=== PATIENT | male | born 1955 | race Caucasian/White ===

== ENCOUNTER 2018-03-24 07:08 | Day surgery (SDC) | END 2018-03-24 12:25 | disposition home or self-care (01) ==

== ENCOUNTER 2018-11-21 06:02 | Day surgery (SDC) | payer OTHER ==
[2018-11-21] VITALS (7 sets, daily range): BP systolic 119–147; BP diastolic 79–90; PULSE 58–72; RESP 14–24; Ht 185.4 cm; Wt 79.8 kg
[~2018-11-21] VITALS: Ht 185.4 cm; Wt 79.8 kg
[~2018-11-21 06:02] MED LIST: CYCLOPENTOLATE 1% 2 ML OPH OPER SCH; LACTATED RINGER'S 1,000 ML IV SCH; MOXIFLOXACIN 0.5% 3 ML OPH OPER SCH; NEPAFENAC 0.1% 3 ML OPH OPER SCH; PHENYLephrine 2.5% 15 ML OPH OPER SCH; SOD CHLORIDE 0.9% 1,000 ML IV SCH; TROPICAMIDE 1% 15 ML OPH OPER SCH
[2018-11-21] MEDS ORDERED: MELO7.5O PO (07:17)
[2018-11-21] MEDS ORDERED: SUMA100T4 PO (07:17)
[2018-11-21] MEDS ORDERED: RANI150T5 PO (07:17)
--- NOTE | 2018-11-21 07:38 | HPN ---
Date/Time of Note Date/Time of Note DATE: 11/21/18 TIME: 07:38 Interval H&P Admission Note Pt. seen H&P reviewed: No system changes CHRISTIANA ELIZABETH Nov 21, 2018 07:38
[2018-11-21] MEDS ORDERED: EPINEPHrine 1 MG INJ ONE (07:45)
[2018-11-21] MEDS ORDERED: TIMOLOL MALEATE/PF 0.5% OCCUDOSE (0.3 ML) ONE (07:45)
[2018-11-21] MEDS ORDERED: TETRACAINE 0.5% 4 ML OPH ONE (07:45)
[2018-11-21] MEDS ORDERED: LIDOCAINE 1% (MPF) 10 ML INJ ONE (07:45)
[2018-11-21] MEDS ORDERED: NA HYALURONATE/CHONDROITIN 0.5 ML SYG ONE (07:46)
--- NOTE | 2018-11-21 07:52 | PREAC ---
Date/Time of Note Date/Time of Note DATE: 11/21/18 TIME: 07:50 Anesthesia Eval and Record Evaluation Time Pre-Procedure Interview DATE: 11/21/18 TIME: 07:50 Age 63 Sex male NPO: 8 hrs Preoperative diagnosis Rt eye cataract Planned procedure Rt eye CE IOL implant Past Medical History Past Medical History: None Surgery & Anesthesia Issues No known issue Meds Anticoagulation: No Beta Katia within 24 hr: No Reason Beta Katia not given: Pt. not on B-Katia Reported Medications Ranitidine Hcl* (Ranitidine Hcl*) 150 Mg Tablet, 150 MG PO Q12, #60 TAB 11/21/18 Meloxicam* (Meloxicam*) 7.5 Mg/5 Ml Oral.susp, 15 MG PO DAILY, #300 ML 11/21/18 Sumatriptan Succinate* (Sumatriptan Succinate*) 100 Mg Tablet, 100 MG PO BID PRN for MIGRAINE HEADACHE, TAB May repeat after 2 hours if needed; MAX 200 mg/24 hours 11/21/18 Current Medications Cyclopentolate HCl (Ak-Pentolate 1% Oph) 1 drop Q 5 MIN X 3 OPER Last administered on 11/21/18at 07:07; Admin Dose 1 DROP; Start 11/21/18 at 06:00 Phenylephrine HCl (Ak-Dilate 2.5%) 1 drop Q 5 MIN X 3 OPER Last administered on 11/21/18 07:13; Admin Dose 1 DROP; Start 11/21/18 at 06:00 Tropicamide (Mydriacyl 1%) 1 drop Q 5 MIN X3 OPER Last administered on 11/21/18 07:08; Admin Dose 1 DROP; Start 11/20/18 at 14:30 Moxifloxacin HCl (Vigamox) 1 drop Q 5 MIN X 3 OPER Last administered on 11/21/18 07:08; Admin Dose 1 DROP; Start 11/21/18 at 06:00 Nepafenac ([place] Oph) 1 drop Q 5 M X 3 OPER Last administered on 11/21/18 07:06; Admin Dose 1 DROP; Start 11/20/18 at 14:30 Lactated Ringer's 1,000 ml @ 25 mls/hr Q24H IV Last administered on 11/21/18at 07:14; Admin Dose 25 MLS/HR; Start 11/21/18 at 06:00 Sodium Chloride 1,000 ml @ 25 mls/hr Q24H IV ; Start 11/21/18 at 06:00 Meds reviewed: Yes Allergies Coded Allergies: No Known Drug Allergies (Verified Allergy, Unknown, 11/21/18) Allergies Reviewed: Yes Labs/Studies Labs Reviewed: Reviewed by anesthesiologist test: N/A Studies: ECG Pre-procedure Exam Last vitals Vital Signs Date Temp Pulse Resp B/P (MAP) Pulse Ox O2 O2 Flow FiO2 Time Delivery Rate 11/21/18 98.9 58 18 132/80 98 Room Air 06:33 (97) Airway: Adequate mouth opening, Adequate thyromental dist Mallampati: Mallampati II Teeth: Normal Lung: Normal Heart: Normal ASA Physical Status ASA physical status: 2 Emergency: None Planned Anesthetic General/MAC: MAC Planned Pain Management Parenteral pain med Pre-operative Attestations Prior to commencing anesthesia and surgery, the patient was re-evaluated, there was verification of: *The patient's identity *The results of appropriate recent lab work and preoperative vital signs *The above evaluation not changing prior to induction *Anesthetic plan, risk benefits, alternative and complications discussed with patient/family; questions answered; patient/family understands, accepts and wishes to proceed. LAYLA DUCKWORTH MD Nov 21, 2018 07:52
[2018-11-21] MEDS ORDERED: MIDAZOLAM 1 MG/ML 2 ML INJ ONE (08:02)
[2018-11-21] MEDS ORDERED: FENTAnyl 50 MCG/ML VIAL ONE (08:02)
[2018-11-21] MEDS ORDERED: TOBRAMYCIN/DEXAMETH 3.5 GM OPH OINT ONE (08:41)
[2018-11-21] MEDS ORDERED: LIDOCAINE 2% (SDV) 5 ML INJ ONE (08:45)
[2018-11-21] MEDS ORDERED: PROPOFOL 20 ML ONE (08:45)
--- NOTE | 2018-11-21 08:55 | PAC ---
Date/Time of Note Date/Time of Note DATE: 11/21/18 TIME: 08:55 Post-Anesthesia Notes Post-Anesthesia Note Last documented vital signs Vital Signs Date Temp Pulse Resp B/P (MAP) Pulse Ox O2 O2 Flow FiO2 Time Delivery Rate 11/21/18 98.9 58 18 132/80 98 Room Air 06:33 (97) Activity: WNL Respiratory function: WNL Cardiovascular function: WNL Mental status: Baseline Pain reasonably controlled: Yes Hydration appropriate: Yes Nausea/Vomiting absent: Yes Comments BP:112/56, P:78, Spo2:100%, T:98,8 LAYLA DUCKWORTH MD Nov 21, 2018 08:55
--- NOTE | 2018-11-21 08:55 | OPR ---
Date/Time of Note Date/Time of Note DATE: 11/21/18 TIME: 08:49 Operative Report Free Text/Dictation Date of Surgery: 11/21/18 Surgeon: Christiana Elizabeth MD PreOp Diagnosis: Age-related nuclear cataract, right eye PostOp Diagnosis: Same Implant: [id number] 21.0D Procedures: 1. Phacoemulsification and extraction of lens, right eye 2. Intraocular lens implantation, right eye Anesthesia: Monitored anesthesia care with topical anesthesia Complications: None Estimated blood loss: <1mL Description of Procedure: The patient suffers from a visually significant cataract of the right eye. After discussing the option of cataract surgery, including the risks and benefits, the patient voiced understanding and elected to proceed today. The patient was identified in the pre-op holding area where the right eye was marked. The patient was then brought to the operating room where a time out was called, identifying the patient, the procedure, and the correct site. Tetracaine eye drops were applied. The right eye was then prepped and draped in usual sterile ophthalmic fashion. An eyelid speculum was placed into the operative eye. A paracentesis was made superiorly with a side port blade. 1% preservative free lidocaine was injected into the anterior chamber. Next, Viscoat was injected to deepen the anterior chamber. A 2.4 mm keratome was used to create a temporal corneal wound. A continuous curvilinear capsulorrhexis was started with a bent cystitome and completed with Utrata forceps. Hydrodissection was performed with a cannula and BSS and the lens was rotated. Phacoemulsification of the lens nucleus was accomplished in a [id number] technique. Remaining residual cortex was removed with irrigation and aspiration. There was adherent lens material on the posterior capsule. This was attempted to be polished, but it was adherent. It was decided to be safer to leave this in, rather than risk posterior capsular rupture. The posterior lens capsule was noted to be intact. Provisc was used to inflate the capsular bag. The lens was injected into the capsular bag. Viscoelastic was removed with irrigation and aspiration. The anterior chamber was filled with BSS to physiologic pressure and the wounds were hydrated and watertight. The eyelid speculum was removed and a drop of timolol, vigamox, and tobradex ointment were placed into the eye. A valdovinos shield was placed over the operative eye. The patient tolerated the procedure well and was in stable condition on the way to the recovery room. CHRISTIANA ELIZABETH Nov 21, 2018 08:55
[2018-11-21] MEDS ORDERED: MEPERIDINE 25 MG INJ IV PRN (09:00)
[2018-11-21] MEDS ORDERED: FENTAnyl 50 MCG/ML VIAL IV PRN (09:00)
[2018-11-21] MEDS ORDERED: ONDANSETRON 4 MG INJ IV PRN (09:00)
[2018-11-21] MEDS ORDERED: DIPHENHYDRAMINE 50 MG INJ IV PRN (09:00)
[2018-11-21] MEDS ORDERED: HYDROmorphONE 1 MG/5 ML IV SYRINGE IV PRN ×2 (09:00)
== END 2018-11-21 09:58 | disposition home or self-care (01) ==
LOC: SDS 06:02
PROVIDERS: ATTEND Ophthalmology
DX: H25.11 Age-related nuclear cataract, right eye (principal)
CPT/HCPCS: 66984; J0171; J2250; J3010; J7120; V2632; Z7512; Z7610

== ENCOUNTER 2019-03-04 06:42 | Day surgery (SDC) | payer OTHER ==
--- NOTE | 2019-03-03 21:55 | PREAC ---
Date/Time of Note Date/Time of Note DATE: 03/03/19 TIME: 21:54 Anesthesia Eval and Record Evaluation Time Pre-Procedure Interview DATE: 03/03/19 TIME: 21:54 Age 63 Sex male NPO: 8 hrs Preoperative diagnosis bladder tumor Planned procedure cystoscopy, TURBT, mitomycin Past Medical History Past Medical History: Includes Neuro: Other (migraines, cataract) Musculoskeletal: Osteoarthritis GI: GERD (well controlled, no symptoms today) Heme: Other (hx basal cell carcinoma) Surgery & Anesthesia Issues No known issue Meds Anticoagulation: No Beta Katia within 24 hr: No Reason Beta Katia not given: Pt. not on B-Katia Discontinued Reported Medications Ranitidine Hcl* (Ranitidine Hcl*) 150 Mg Tablet, 150 MG PO Q12, #60 TAB 11/21/18 Meloxicam* (Meloxicam*) 7.5 Mg/5 Ml Oral.susp, 15 MG PO DAILY, #300 ML 11/21/18 Sumatriptan Succinate* (Sumatriptan Succinate*) 100 Mg Tablet, 100 MG PO BID PRN for MIGRAINE HEADACHE, TAB May repeat after 2 hours if needed; MAX 200 mg/24 hours 11/21/18 Meds reviewed: Yes Allergies Coded Allergies: No Known Drug Allergies (Verified Allergy, Unknown, 03/04/19) Allergies Reviewed: Yes Labs/Studies Labs Reviewed: Reviewed by anesthesiologist test: N/A Pre-procedure Exam Airway: Adequate mouth opening, Adequate thyromental dist Mallampati: Mallampati II Teeth: Normal Lung: Normal Heart: Normal ASA Physical Status ASA physical status: 2 Emergency: None Planned Anesthetic General/MAC: ETT Planned Pain Management Parenteral pain med, Local by surgeon Pre-operative Attestations Prior to commencing anesthesia and surgery, the patient was re-evaluated, there was verification of: *The patient's identity *The results of appropriate recent lab work and preoperative vital signs *The above evaluation not changing prior to induction *Anesthetic plan, risk benefits, alternative and complications discussed with patient/family; questions answered; patient/family understands, accepts and wishes to proceed. JEF RODRIGUEZ Mar 03, 2019 21:55
[2019-03-04] VITALS (12 sets, daily range): BP systolic 120–156; BP diastolic 73–96; PULSE 66–110; RESP 16–34; Ht 185.4 cm; Wt 74.9 kg
[~2019-03-04] VITALS: Ht 185.4 cm; Wt 74.9 kg
[~2019-03-04 06:42] MED LIST changes: -CYCLOPENTOLATE 1% 2 ML OPH OPER SCH; -LACTATED RINGER'S 1,000 ML IV SCH; +MELO7.5O PO; -MOXIFLOXACIN 0.5% 3 ML OPH OPER SCH; -NEPAFENAC 0.1% 3 ML OPH OPER SCH; -PHENYLephrine 2.5% 15 ML OPH OPER SCH; +RANI150T5 PO; -SOD CHLORIDE 0.9% 1,000 ML IV SCH; +SUMA100T4 PO; -TROPICAMIDE 1% 15 ML OPH OPER SCH
[2019-03-04] MEDS ORDERED: LACTATED RINGER'S 1,000 ML IV SCH (08:30)
[2019-03-04] MEDS ORDERED: FENTAnyl 50 MCG/ML VIAL ONE (08:50)
[2019-03-04] MEDS ORDERED: MIDAZOLAM 1 MG/ML 2 ML INJ ONE (08:50)
[2019-03-04] MEDS ORDERED: LIDOCAINE 2% (SDV) 5 ML INJ ONE (08:50)
[2019-03-04] MEDS ORDERED: PROPOFOL 20 ML ONE (08:50)
--- NOTE | 2019-03-04 09:22 | HPN ---
Date/Time of Note Date/Time of Note DATE: 03/04/19 TIME: 09:22 Interval H&P Admission Note Pt. seen H&P reviewed: No system changes YRN HELM Mar 04, 2019 09:22
--- NOTE | 2019-03-04 09:30 | HPN ---
Date/Time of Note Date/Time of Note DATE: 03/04/19 TIME: 09:28 Interval H&P Admission Note Pt. seen H&P reviewed: No system changes no change in left flank pain 10/10 for more than 1 year defers further evaluation and rx of pain prior to proceeding with planned TURBT YRN HELM Mar 04, 2019 09:29
[2019-03-04] MEDS ORDERED: CIPROFLOXACIN 400MG/D5W 200 ML ONE (09:50)
[2019-03-04] MEDS ORDERED: MITOMYCIN 40 MG VIAL IS ONE (10:00)
[2019-03-04] MEDS ORDERED: DEXAMETHASONE 4 MG/ML 5 ML INJ ONE (10:10)
[2019-03-04] MEDS ORDERED: METOCLOPRAMIDE 10 MG INJ ONE (10:10)
[2019-03-04] MEDS ORDERED: ONDANSETRON 4 MG INJ ONE (10:10)
[2019-03-04] MEDS ORDERED: FAMOTIDINE 20 MG INJ ONE (10:10)
[2019-03-04] MEDS ORDERED: ROCURONIUM 50 MG INJ ONE (10:26)
[2019-03-04] MEDS ORDERED: OXYCODONE/ACETAMINOPHEN (5/325) TAB PO PRN ×2 (10:30)
[2019-03-04] MEDS ORDERED: HYDROmorphONE 1 MG/5 ML IV SYRINGE IV PRN ×3 (10:30)
[2019-03-04] MEDS ORDERED: ONDANSETRON 4 MG INJ IV PRN (10:30)
[2019-03-04] MEDS ORDERED: hydrALAzine 20 MG INJ IV PRN (10:30)
[2019-03-04] MEDS ORDERED: LABETALOL HCL 20MG INJ IV PRN (10:30)
[2019-03-04] MEDS ORDERED: MEPERIDINE 25 MG INJ IV PRN (10:30)
[2019-03-04] MEDS ORDERED: INDIGOTINDISULFONATE 0.8% 5 ML INJ ONE (10:31)
[2019-03-04] MEDS ORDERED: FUROSEMIDE 20 MG INJ ONE (10:35)
[2019-03-04] MEDS ORDERED: NEOSTIGMINE 3 MG/3 ML SYRINGE ONE (10:38)
[2019-03-04] MEDS ORDERED: GLYCOPYRROLATE 0.4 MG INJ ONE (10:38)
[2019-03-04] MEDS ORDERED: INDIGOTINDISULFONATE 0.8% 5 ML INJ IV ONE (10:41)
--- NOTE | 2019-03-04 11:05 | PDOCDIS ---
Discharge Instructions DIAGNOSIS Discharge Diagnosis Bladder Cancer CONDITION Erich Patient Condition: Jeremy Good HOME CARE INSTRUCTIONS: Erich Diet Instructions: Jeremy Regular ACTIVITY: Erich Activity Restrictions: Jeremy No Weight Bearing Erich Bathing Restrictions: Jeremy Shower FOLLOW UP/APPOINTMENTS Follow-up Plan Follow up in office, 8 am this SaturdayMarch 09 for removal of Rubio Light activity No sexual activity Tylenol is ok No Aspirin or Ibuprofen for 2 weeks May have blue colored urine May have blood or blood clots in Rubio Hydration with water REFERRALS Erich Referring Provider: YRN Fitzpatrick OTHER ORDERS: Other Orders: As above SCHOOL/WORK RELEASE May return to School/Work on: Mar 04, 2019 YRN HELM Mar 04, 2019 11:05
--- NOTE | 2019-03-04 11:07 | OPR ---
Date/Time of Note Date/Time of Note DATE: 03/04/19 TIME: 11:06 Operative Report Procedure Date: Mar 04, 2019 Preoperative Diagnosis Bladder cancer Postoperative Diagnosis bladder cancer Operation/Procedure Performed TURBT Surgeon Felix Payroll Clerk Bandar Anesthesia Type: general Estimated Blood Loss: none Transfusion none Specimen bladder tumor Grafts/Implants none Tubes/Drains [address] patterson Complications none Pt Condition Post Procedure: stable Disposition: PACU Indications bladder cancer Procedure Description dict [id number] YRN HELM Mar 04, 2019 11:07
--- NOTE | 2019-03-04 11:52 | PAC ---
Date/Time of Note Date/Time of Note DATE: 03/04/19 TIME: 11:52 Post-Anesthesia Notes Post-Anesthesia Note Last documented vital signs Vital Signs Date Temp Pulse Resp B/P (MAP) Pulse Ox O2 O2 Flow FiO2 Time Delivery Rate 03/04/19 70 11:45 03/04/19 17 131/78 100 Room Air 11:39 (95) 03/04/19 6.0 11:04 03/04/19 97.8 10:58 Activity: WNL Respiratory function: WNL Cardiovascular function: WNL Mental status: Baseline Pain reasonably controlled: Yes Hydration appropriate: Yes Nausea/Vomiting absent: Yes JEF RODRIGUEZ Mar 04, 2019 11:52
--- NOTE | 2019-03-04 16:00 | OPR ---
DATE OF OPERATION: PREOPERATIVE DIAGNOSIS: Bladder cancer. POSTOPERATIVE DIAGNOSIS: Bladder cancer. OPERATION PERFORMED: Cystoscopy, transurethral resection of large bladder tumor, coagulation of pros tatic fossa. SURGEON: Bran Helm MD ANESTHESIA: General. COMPLICATIONS: None. FINDINGS: Large bladder tumor with base of tumor protruding from right hemitrigone, enlarged median lobe with multiple friable blood vessels. SPECIMEN: Bladder tumor. DRAINS: 20-Uzbek 2-way Rubio catheter. DESCRIPTION OF PROCEDURE: The patient was brought into the operating room [facility] in the supine lithotomy position. He was prepped and draped in the usual fashion after anesthesia was induced. A timeout was undertaken. Appropriate pressure points were padded. He rece ived preoperative antibiotic therapy. Rigid cystoscopy was undertaken with a 12-degree and 30-degree angle lens. No abnormalities of the anterior urethra could be appreciated. A very enlarged median lobe was appreciated which protrudes into the bladder. The bladder was inspected in a systematic fas hion off of the right lateral wall obscuring the right ureteral orifice was a large papillary bladder tumor. The left ureteral orifice was within normal limits. It did not appear that there were any o ther bladder tumors within the bladder at this juncture. Under direct vision, utilizing the bipolar Olympus resectoscope, resection of the bladder tumor was undertaken after partial dissection of the b ladder, so as to avoid cautery effect to the bladder stewart. The tumor was resected from an anterior aspect down towards the trigone. At this point, it was noted that the base of the tumor was coming o ff of the right hemitrigone and not the right lateral wall. Continued resection was undertaken down to the base of the tumor where it was noted that the base of the tumor was posterior and lateral to t he right ureteral orifice. Resection was taken into the muscle lining. One ampule of indigo carmine was administered and efflux of blue urine was noted from both ureters. Pinpoint hemostasis was obta ined. Due to the resection that was undertaken, it was decided not to instill mitomycin. A 2-way Fo toño catheter was inserted and the efflux was noted to be light blue. No active bleeding could be alfredo reciated. This was left to gravity drainage. He will be transferred to recovery room and be [facility] home later today as long as he remains in stable condition on [place] 5/325 one tab p.o. q.6 hours p.r.n., dispense #30, no refill. He will follow up in the office on Saturday morning at 8 a.m. for re moval of his Rubio catheter. Further intervention, evaluation pending clinical course and results of above. Dictated By: BRAN HELM MD EGR/NTS Conf#: [id number] DID#: [id number] CC: BRAN HELM MD;*EndCC*
== END 2019-03-04 12:50 | disposition home or self-care (01) ==
LOC: SDS 06:42
PROVIDERS: ATTEND Urology
DX: C67.9 Malignant neoplasm of bladder, unspecified (principal)
CPT/HCPCS: 52235; 88307; J0744; J1100; J1940; J2250; J2405; J2710; J2765; J3010; J9280; Z7512; Z7610